=== PATIENT | female | born 1995 | race African-American/Black ===

== ENCOUNTER 2021-05-11 04:43 | Emergency (ER) | payer SELFPAY ==
--- NOTE | ~2021-05-11 | XR_ITS ---
EXAMINATION: XR CHEST CLINICAL INFORMATION: Cough COMPARISON: 07/05/2019 TECHNIQUE: Frontal view of the chest was obtained. FINDINGS: Right chest wall Port-A-Cath terminates at the superior cavoatrial junction. Bibasilar subsegmental atelectasis. No focal consolidation. No pleural effusion or pneumothorax. XR/XR chest 1V IMPRESSION: Bibasilar subsegmental atelectasis. No discrete consolidation.
[2021-05-11 04:45] VITALS: BP 136/85; PULSE 102; RESP 14; TEMP 36.8; O2SAT 95; BMI 28.1
--- NOTE | 2021-05-11 05:07 | ECG_ITS ---
Test Reason : PAIN Blood Pressure : / mmHG Vent. Rate : 093 BPM Atrial Rate : 093 BPM P-R Int : 198 ms QRS Dur : 090 ms QT Int : 354 ms P-R-T Axes : 065 034 013 degrees QTc Int : 440 ms Normal sinus rhythm Septal infarct , age undetermined Abnormal ECG When compared with ECG of 05-JAN-2020 14:18, No significant change was found Referred By: Shyann Jesus Electronically Signed By:CAIT ELENA MD
[2021-05-11 05:23] LABS: Hematocrit 24.7 % (37.0-47.0); Hemoglobin 8.4 g/dl (12.0-16.0); Immature Retic Fraction 43.1 % (3.0-15.9); Mean Corpuscular Volume 85.2 fL (80.0-98.0); Mean Platelet Volume 9.1 fL (9.4-12.3); Platelet Count 497 X10*3/uL (160-400); Red Cell Distribution Width 19.2 % (11.0-16.0); Retic HGB Equivalent 31.1 pg (30.0-35.0); Reticulocytes Absolute 0.348 X10*6/uL (0.026-0.095)
[2021-05-11 05:24] LABS: NRBC Pct Auto 14.6 /100WBC (0.0-0.2); WBC ABN SCTR FOR CBC 1
[2021-05-11 05:26] LABS: White Blood Count 14.2 X10*3/uL (4.8-10.8)
[2021-05-11] MEDS: 0.9 % Sodium Chloride 1,000 ML 999 ML IV (05:31)
[2021-05-11 05:36] LABS: Appearance Urine CLEAR; Color Urine DK YELLOW; Glucose Urine UA NEG (NEG); Leukocyte Esterase Urine NEG (NEG); Nitrite Urine NEG (NEG); UACC Culture Trigger NO; Urine Blood TRACE (NEG); Urine Ketones NEG (NEG); Urine Protein 1+ MG/DL (NEG-TRACE)
[2021-05-11 05:36] LABS: COVID-19 Test Negative (Negative)
[2021-05-11 05:37] LABS: UPreg QC Valid YES; Urine Pregnancy NEGATIVE (NEGATIVE)
[2021-05-11 05:41] LABS: INTERNATIONAL NORM RATIO 1.3 (0.9-1.1); Prothrombin Time 14.9 SEC (9.9-13.0)
--- NOTE | 2021-05-11 05:45 | ED.SOB ---
HPI - SOB/Dyspnea General Chief Complaint: Dyspnea Stated Complaint: SoB, feels as if is going to pass out Time Seen by Provider: 05/11/21 05:06 Source: patient Mode of arrival: ambulatory History of Present Illness HPI Narrative: 25-year-old female with history of sickle cell and currently followed [place] Dr. Schmidt [place] [facility] [place] presents with difficulty breathing, wheezing, questionable sickle cell crisis. Patient states that she was admitted [place] [facility] [place] and at that time was noted to have PEs and is currently on twice daily Lovenox injections and she states that she is compliant with this treatment plan and reports that she has otherwise been vaccinated with the [employer] with a booster of mon.ki. Patient reports that although she has a the phlegm production has been decrease when compared to last week but states that her chest is painful when she coughs and she has had a sore throat. Patient states that she has pseudoseizures when she is stressed and anxious. Related Data Allergies Allergy/AdvReac Type Severity Reaction Status Date / Time metoclopramide [From REGLAN] Allergy Intermediate HALLUCINATI Verified 05/11/21 06:08 ONS ketorolac [From Toradol] Allergy Hallucinati Verified 05/11/21 05:47 ons Review of Systems Review of Systems: Pertinent positives and negatives as stated in HPI and 10 point review of systems is otherwise negative. [facility] Past Medical History Source: nursing notes reviewed Social History Social History Advance Directives: No Advance Directives Information Provided: No Patient : No Physical Exam Vital Signs: Vital Signs: Last Vital Signs Temp 98.2 F 05/11/21 04:45 Pulse 83 05/11/21 06:06 Resp 15 05/11/21 06:06 BP 127/74 05/11/21 06:06 Pulse Ox 98 05/11/21 06:06 BMI result Body Mass Index 28.1 VITAL SIGNS: Reviewed. GENERAL: Well developed, well nourished, in no acute distress. HEAD: Normocephalic/atraumatic EYES: PERRLA, EOMI EARS: Ext canals without abnormality, TMs non-bulging and non-erythematous NOSE: Nares patent bilateral OROPHARYNX: no oral lesions noted, posterior pharynx clear and non-erythematous without noted tonsillar enlargement/erythema/exudates NECK: Supple, no adenopathy LUNGS: Normal breath sounds, no tachypnea or increased work of breathing noted. No adventitious sounds or accessory muscle use. SpO2<95> CARDIOVASCULAR: Regular rate and rhythm without noted murmurs, no JVD or lower extremity edema. ABDOMEN: Soft, non-tender, non-distended with bowel sounds. MUSCULOSKELETAL: No tenderness, deformities, or effusions noted on gross inspection. EXTREMITIES: No cyanosis, clubbing or edema. SKIN: Inspection of the skin reveals no rashes NEUROLOGIC: Alert and oriented x 4. Strength and sensation to light touch were grossly intact x 4. Course Course Course Narrative: 25-year-old female with history and clinical presentation consistent with possible sickle cell crisis, although felt to be somewhat less likely as patient was recently seen [place] [facility] [place] have been requested from [facility] [place] and patient is calm and cooperative this time without evidence tachypnea or tachycardia. Records obtained from [facility] indicate that patient was discharged from there [facility] emergency room on 05/10/2021 at 8:55 p.m.. At that time patient been discharged pain medication prescription and then further documentation demonstrates that patient re-presented to the emergency room at 05/11/2021 at 4:28 a.m.. Patient had a pseudo-seizure in the ambulance that brought her [place] [facility] [place] that time. I discussed these findings with the patient and on review all investigations there is adequate reticulocyte response as index is >/=2, patient is afebrile, not tachypneic, and although mildly tachycardic on initial presentation has responded very well to the 1 L of IV fluids and is otherwise oxygenating well on room air with good pain control after receiving medications. There is no evidence of infection and suspect that the noted leukocytosis is a stress response. Discussed with patient the need to follow-up with Dr. Schmidt today and she acknowledges understanding. Reevaluation(s) Reevaluation #1: Reticulocyte index-3.53 Time: 06:05 MDM - SOB/Dyspnea Lab Data Result diagrams: 05/11/21 05:16 05/11/21 05:16 Labs: Lab Results 05/11/21 05/11/21 05/11/21 Range/Units 05:16 05:16 05:16 WBC 14.2 H (4.8-10.8) X10*3/uL RBC 2.90 L (4.20-5.50) X10*6/uL Hgb 8.4 L (12.0-16.0) g/dl Hct 24.7 L (37.0-47.0) % MCV 85.2 (80.0-98.0) fL MCH 29.0 (27.0-33.0) pg MCHC 34.0 (31.0-35.0) g/dl RDW 19.2 H (11.0-16.0) % Plt Count 497 H (160-400) X10*3/uL MPV 9.1 L (9.4-12.3) fL Immature Gran % (Auto) Cancelled Neut % (Auto) Cancelled Lymph % (Auto) Cancelled [place] % (Auto) Cancelled Eos % (Auto) Cancelled Baso % (Auto) Cancelled Lymph # (Auto) Cancelled [place] # (Auto) Cancelled Eos # (Auto) Cancelled Baso # (Auto) Cancelled Abs Immat Gran (auto) Cancelled Absolute Neuts (auto) Cancelled Absolute Nucleated RBC 2.060 H (0.0-0.012) X10*3/uL Nucleated RBC % (auto) 14.6 H (0.0-0.2) /100WBC Neutrophils % (Manual) 60 (45-73) % Band Neutrophils % 0 L (3-5) % Lymphocytes % (Manual) 25 (20-40) % Monocytes % (Manual) 14 H (2-11) % Eosinophils % (Manual) 1 (0-4) % Abs Neuts (Manual) 8.5 H (2.0-8.3) X10*3/uL Lymphocytes # (Manual) 3.6 (1.2-4.9) X10*3/uL Monocytes # (Manual) 2.0 H (0.1-1.2) X10*3/uL Eosinophils # (Manual) 0.1 (0.0-0.4) X10*3/uL Nucleated RBCs 17 H (0-0) /100WBC Toxic Vacuolation PRESENT Platelet Estimate SLIGHTLY INCREASED (NORMAL) Plt Morphology Comment NORMAL RBC Morphology NOTED Polychromasia 3+ (>5) /OIF Hypochromasia 1+ (5-14) /OIF Microcytosis 2+ (15-30) /OIF Spherocytes 2+ (3-5) /OIF Sickle Cells 3+ (>5) /OIF Target Cells 1+ (5-14) /OIF Tear Drop Cells 1+ (0-2) /OIF Ovalocytes 1+ (5-14) /OIF Simon-Saucier Bodies PRESENT Acanthocytes (Spur) 1+ (0-2) /OIF Smear Path Review Cancelled Absolute Retic 0.348 H (0.026-0.095) X10*6/uL Percent Retic 12.0 H (0.5-1.8) % Immature Retic Fraction 43.1 H (3.0-15.9) % Retic Hgb Equivalent 31.1 (30.0-35.0) pg PT (9.9-13.0) SEC INR (0.9-1.1) Sodium 139 (135-145) mmol/L Potassium 3.3 (3.3-5.1) mmol/L Chloride 111 H (96-108) mmol/L Carbon Dioxide 21 L (22-29) mmol/L Anion Gap 10 L (12-20) BUN 8 L (9-16) mg/dL Creatinine 0.69 (0.5-1.4) mg/dL Estim Creat Clear Calc 136.9 Estimated GFR > 60 Random Glucose 123 H (60-115) mg/dL Calcium 9.8 (8.4-10.2) mg/dL Total Bilirubin 1.0 (0.0-1.0) mg/dL AST 24 (5-31) U/L ALT 37 H (0-31) U/L Alkaline Phosphatase 71 (39-117) U/L Lactate Dehydrogenase 391 H (122-220) U/L Total Protein 8.1 H (6.5-8.0) g/dL Albumin 4.4 (3.5-5.0) g/dL Urine Color Urine Appearance Urine pH (5.0-8.0) Ur Specific [place] (1.005-1.025) Urine Protein (NEG-TRACE) MG/DL Urine Glucose (UA) (NEG) MG/DL Urine Ketones (NEG) MG/DL Urine Blood (NEG) Urine Nitrite (NEG) Ur Leukocyte Esterase (NEG) Urine RBC (0) /HPF Urine WBC (0-4) /HPF Ur Squamous Epith Cells /LPF Urine Bacteria /LPF Urine Mucus /LPF Urine Test (NEGATIVE) COVID-19 (MARTINE) Negative (Negative) COVID-19 Clin Com See Note 05/11/21 05/11/21 05/11/21 Range/Units 05:16 05:29 05:29 WBC (4.8-10.8) X10*3/uL RBC (4.20-5.50) X10*6/uL Hgb (12.0-16.0) g/dl Hct (37.0-47.0) % MCV (80.0-98.0) fL MCH (27.0-33.0) pg MCHC (31.0-35.0) g/dl RDW (11.0-16.0) % Plt Count (160-400) X10*3/uL MPV (9.4-12.3) fL Immature Gran % (Auto) Neut % (Auto) Lymph % (Auto) [place] % (Auto) Eos % (Auto) Baso % (Auto) Lymph # (Auto) [place] # (Auto) Eos # (Auto) Baso # (Auto) Abs Immat Gran (auto) Absolute Neuts (auto) Absolute Nucleated RBC (0.0-0.012) X10*3/uL Nucleated RBC % (auto) (0.0-0.2) /100WBC Neutrophils % (Manual) (45-73) % Band Neutrophils % (3-5) % Lymphocytes % (Manual) (20-40) % Monocytes % (Manual) (2-11) % Eosinophils % (Manual) (0-4) % Abs Neuts (Manual) (2.0-8.3) X10*3/uL Lymphocytes # (Manual) (1.2-4.9) X10*3/uL Monocytes # (Manual) (0.1-1.2) X10*3/uL Eosinophils # (Manual) (0.0-0.4) X10*3/uL Nucleated RBCs (0-0) /100WBC Toxic Vacuolation Platelet Estimate (NORMAL) Plt Morphology Comment RBC Morphology Polychromasia /OIF Hypochromasia /OIF Microcytosis /OIF Spherocytes /OIF Sickle Cells /OIF Target Cells /OIF Tear Drop Cells /OIF Ovalocytes /OIF Simon-Saucier Bodies Acanthocytes (Spur) /OIF Smear Path Review Absolute Retic (0.026-0.095) X10*6/uL Percent Retic (0.5-1.8) % Immature Retic Fraction (3.0-15.9) % Retic Hgb Equivalent (30.0-35.0) pg PT 14.9 H (9.9-13.0) SEC INR 1.3 H (0.9-1.1) Sodium (135-145) mmol/L Potassium (3.3-5.1) mmol/L Chloride (96-108) mmol/L Carbon Dioxide (22-29) mmol/L Anion Gap (12-20) BUN (9-16) mg/dL Creatinine (0.5-1.4) mg/dL Estim Creat Clear Calc Estimated GFR Random Glucose (60-115) mg/dL Calcium (8.4-10.2) mg/dL Total Bilirubin (0.0-1.0) mg/dL AST (5-31) U/L ALT (0-31) U/L Alkaline Phosphatase (39-117) U/L Lactate Dehydrogenase (122-220) U/L Total Protein (6.5-8.0) g/dL Albumin (3.5-5.0) g/dL Urine Color DK YELLOW Urine Appearance CLEAR Urine pH 6.0 (5.0-8.0) Ur Specific [place] 1.010 (1.005-1.025) Urine Protein 1+ H (NEG-TRACE) MG/DL Urine Glucose (UA) NEG (NEG) MG/DL Urine Ketones NEG (NEG) MG/DL Urine Blood TRACE (NEG) Urine Nitrite NEG (NEG) Ur Leukocyte Esterase NEG (NEG) Urine RBC 0-2 (0) /HPF Urine WBC 0-2 (0-4) /HPF Ur Squamous Epith Cells 1+ /LPF Urine Bacteria TRACE /LPF Urine Mucus TRACE /LPF Urine Test NEGATIVE (NEGATIVE) COVID-19 (MARTINE) (Negative) COVID-19 Clin Com ECG Data Attestation: I personally reviewed and interpreted this ECG as follows: Prior ECG tracings: not available for review Interpretation: Normal sinus rhythm, HR-93, no STEMI, [place]/QRS/QTC are within normal limits. Discharge Plan Discharge Clinical Impression: Sickle cell pain crisis Patient Disposition: Home, Self-Care Instructions: Sickle Cell Disease (DC), Sickle Cell Crisis (ED) Additional Instructions: 1. Resume all home medications as prescribed. 2. Follow-up with Dr. Schmidt to discuss your pain medication regimen. Return to the ER for worsening symptoms. Referrals: Paevl Schmidt MD [Physician] - 2 days (Presented [place] [facility] [place] [facility] [place] today for sickle cell pain. Workup was without acute findings.)
[2021-05-11] MEDS: diphenhydrAMINE HCL 50 MG/ML VIAL IVPUSH (05:48)
[2021-05-11] MEDS: HYDROmorphone HCl 2 MG/ML VIAL 1.5 MG IVPUSH (05:48)
[2021-05-11] MEDS: HYDROmorphone HCl 0.5 MG/0.5 ML SYRINGE IVPUSH (05:48)
[2021-05-11 05:52] LABS: Alanine Aminotransferase 37 U/L (0-31); Albumin Level 4.4 g/dL (3.5-5.0); Alkaline Phosphatase 71 U/L (39-117); Anion Gap 10 (12-20); Aspartate Amino Transferase 24 U/L (5-31); Blood Urea Nitrogen 8 mg/dL (9-16); Calcium 9.8 mg/dL (8.4-10.2); Carbon Dioxide 21 mmol/L (22-29); Chloride 111 mmol/L (96-108); Creatinine Clr Calc Pharmacy 136.9; Estimated Glomerular Filt Rate > 60; Glucose Random 123 mg/dL (60-115); Lactate Dehydrogenase 391 U/L (122-220); Potassium 3.3 mmol/L (3.3-5.1); Sodium 139 mmol/L (135-145); Total Protein 8.1 g/dL (6.5-8.0)
[2021-05-11 05:54] LABS: Eosinophils Absolute Manual 0.1 X10*3/uL (0.0-0.4); Eosinophils Percent Manual 1 % (0-4); Lymphocytes Absolute Manual 3.6 X10*3/uL (1.2-4.9); Lymphocytes Percent Manual 25 % (20-40); Microcytosis 2+ (15-30) /OIF; Monocytes Percent Manual 14 % (2-11); Neutrophils Percent Manual 60 % (45-73); Nucleated Red Blood Cells 17 /100WBC (0-0); Platelet Estimate SLIGHTLY INCREASED (NORMAL); Platelet Morphology Comment NORMAL; RBC Morphology NOTED
[2021-05-11 05:55] LABS: Acanthocytes 1+ (0-2) /OIF; Ovalocytes 1+ (5-14) /OIF; Sickle Cells 3+ (>5) /OIF; Spherocytes 2+ (3-5) /OIF; Target Cells 1+ (5-14) /OIF; Tear Drop Cells 1+ (0-2) /OIF
[2021-05-11 05:58] LABS: Howell Jolly Bodies PRESENT; Polychromasia 3+ (>5) /OIF
[2021-05-11 05:59] LABS: Hypochromasia 1+ (5-14) /OIF; Toxic Vacuolation PRESENT
[2021-05-11 06:06] VITALS: BP 127/74; PULSE 83; RESP 15; O2SAT 98
[2021-05-11 06:08] LABS: Bacteria Urine TRACE /LPF; Mucus Urine TRACE /LPF; RBC Urine 0-2 /HPF (0); Squamous Epithelial Cell Urine 1+ /LPF; WBC Urine 0-2 /HPF (0-4)
[2021-05-11] MEDS: Sodium Chloride 0.45 % 1,000 ML 999 ML IV (06:09)
[2021-05-11 07:01] LABS: Band Neutrophils Percent 0 % (3-5); Neutrophils Absolute Manual 8.5 X10*3/uL (2.0-8.3)
[2021-05-11] MEDS: HYDROmorphone HCl 1 MG/ML SYRINGE IVPUSH (07:46)
== END 2021-05-11 07:57 | disposition home or self-care (01) ==
PROVIDERS: Emergency Provider Student in an Organized Health Care Education/Training Program
DX: D57.00 Hb-SS disease with crisis, unspecified (principal); Z20.822 Contact with and (suspected) exposure to COVID-19; R00.0 Tachycardia, unspecified
CPT/HCPCS: 36415; 71045; 80053; 81001; 81025; 83615; 85007; 85027; 85045; 85610; 87635; 93005; 96361; 96374; 96375; 96376; 99284; J1170; J1200

== ENCOUNTER 2021-05-12 08:52 | Emergency (ER) | payer SELFPAY ==
[2021-05-12 08:57] VITALS: BP 147/84; PULSE 87; RESP 18; TEMP 36.7; O2SAT 100; BMI 24.2
== END 2021-05-12 13:25 | disposition left against medical advice (07) ==
PROVIDERS: Emergency Provider Emergency Medicine
DX: R06.02 Shortness of breath (principal)
CPT/HCPCS: 99281